=== PATIENT | female | born 1980 | race Caucasian/White ===

== ENCOUNTER → 2019-11-14 | Outpatient (CLI) | payer BC ==
--- NOTE | 2019-11-16 16:31 | MY ---
DATE OF SERVICE: 11/14/19 CLINICAL DATA: SELF REFERRAL [facility] 07/08/18 BILATERAL MAMMOGRAMS: Comparison is made to a prior exam dated 07/08/18. There are scattered fibroglandular densities in both breasts. There is stable asymmetry. No changes from the prior exam. No evidence of malignancy. IMPRESSION: No evidence of malignancy. One year follow-up mammography is recommended. BI-RAD B: Mammogram - There are scattered areas of fibroglandular density. ACR 1 - Negative Mammogram. The exam was reviewed with R2 CAD. [id number] [facility]
== END ==
LOC: LB.MAM 14:00
PROVIDERS: ATTEND Family Medicine
DX: Z12.31 Encounter for screening mammogram for malignant neoplasm of breast (principal)
CPT/HCPCS: 77067

== ENCOUNTER 2023-04-18 10:04 | Day surgery (SDC) | payer BC, OTHER ==
[~2023-04-18 10:04] MED LIST: Metoclopramide 10 MG/2 ML SDV IV PRN; Sodium Chloride 0.9% 1,000 ML IV SCH
[2023-04-18] MEDS ORDERED: Glycopyrrolate 0.2 MG/ML 2 ML SDV ONE (11:45)
== END 2023-04-18 13:00 | disposition home or self-care (01) ==
LOC: LB.SDS 10:04
PROVIDERS: ATTEND Surgery
DX: Z12.11 Encounter for screening for malignant neoplasm of colon (principal); K64.4 Residual hemorrhoidal skin tags; Q43.8 Other specified congenital malformations of intestine; Z80.0 Family history of malignant neoplasm of digestive organs
CPT/HCPCS: J2704; J3490; J7030